=== PATIENT | male | born 1955 | race African-American/Black ===

== ENCOUNTER 2020-12-15 06:09 | Observation (INO) ==
[2020-12-15 07:17] LABS: Basophils % 0.9 % (0.0-0.8); Eosinophils # 0.1 10*3/uL (0.0-0.87); Eosinophils % 2.6 % (0.00-10.9); Hematocrit 36.6 VOL% (42.0-52.0); Hemoglobin 12.4 GM/DL (14.0-18.0); Immature Granulocytes % 0.4 %; Immature Granulocytes Absolute 0.02 #; Lymphocytes # 1.3 10*3/uL (1.4-4.0); Lymphocytes % 28.5 % (21.2-54.2); Mean Corpuscular HGB Conc 33.9 GM/DL (32-36); Mean Corpuscular Volume 89.5 FL (87-102); Mean Platelet Volume 9.7 FL (9.6-12.0); Monocytes % 7.5 % (1.7-12.7); Neutrophils % 60.1 % (38.7-73.9); Platelet Count 265 T/CUMM (130-400); Red Blood Count 4.09 MC/CUMM (3.8-5.5); Red Cell Distribution Width 13.5 % (9.3-17.3); White Blood Count 4.7 T/CUMM (4-12)
[2020-12-15 07:26] LABS: INR 0.9; PT Patient Result 10.2 SECS (9.8-11.9)
[2020-12-15] MEDS ORDERED: DIAZEPAM 5 MG TABLET PO ONE (08:30)
[2020-12-15] MEDS: SODIUM CHLORIDE 0.45% 1,000 ML IV SCH (09:15)
[2020-12-15] MEDS ORDERED: ACETAMINOPHEN 325 MG TABLET PO PRN (15:36)
[2020-12-15] MEDS ORDERED: ONDANSETRON 4 MG/2 ML VIAL IV PRN (15:36)
[2020-12-15] MEDS ORDERED: DEXTROSE 50% 25 GM/50 ML VIAL IV PRN (15:36)
[2020-12-15] MEDS ORDERED: GLUCAGON 1 MG VIAL IM PRN (15:36)
[2020-12-15] MEDS ORDERED: MORPHINE 4 MG/1 ML VIAL IV PRN (16:52)
[2020-12-15 17:27] LABS: Albumin 3.1 G/DL (3.4-5.0); Bilirubin,Total 0.5 MG/DL (0.2-1.0); Calcium 8.9 MG/DL (8.5-10.1); Osmolality,Calculated 284.1 MOS/KG (273-304); Potassium 3.3 MMOL/L (3.5-5.1); Total Protein 6.4 G/DL (6.4-8.2)
[2020-12-15] MEDS ORDERED: POTASSIUM CHLORIDE 20 MEQ TABLET PO ONE (19:15)
[2020-12-15] MEDS ORDERED: POTASSIUM CHLORIDE 20 MEQ TABLET PO PRN (19:15)
[2020-12-16 04:43] LABS: Basophils % 0.4 % (0.0-0.8); Eosinophils # 0.1 10*3/uL (0.0-0.87); Eosinophils % 1.2 % (0.00-10.9); Hematocrit 32.6 VOL% (42.0-52.0); Hemoglobin 10.8 GM/DL (14.0-18.0); Immature Granulocytes % 0.4 %; Immature Granulocytes Absolute 0.03 #; Lymphocytes # 1.3 10*3/uL (1.4-4.0); Lymphocytes % 17.9 % (21.2-54.2); Mean Corpuscular HGB Conc 33.1 GM/DL (32-36); Mean Corpuscular Volume 90.8 FL (87-102); Mean Platelet Volume 9.8 FL (9.6-12.0); Monocytes % 7.4 % (1.7-12.7); Neutrophils % 72.7 % (38.7-73.9); Platelet Count 239 T/CUMM (130-400); Red Blood Count 3.59 MC/CUMM (3.8-5.5); Red Cell Distribution Width 13.7 % (9.3-17.3); White Blood Count 7.4 T/CUMM (4-12)
[2020-12-16 05:02] LABS: Albumin 2.7 G/DL (3.4-5.0); Bilirubin,Total 0.5 MG/DL (0.2-1.0); Calcium 8.6 MG/DL (8.5-10.1); Osmolality,Calculated 278.5 MOS/KG (273-304); Potassium 3.7 MMOL/L (3.5-5.1); Total Protein 5.8 G/DL (6.4-8.2)
[2020-12-16] MEDS ORDERED: amLODIPine 10 MG TABLET PO SCH (09:00)
[2020-12-16] MEDS ORDERED: PANTOPRAZOLE 40 MG TABLET PO SCH (09:00)
[2020-12-16] MEDS: SODIUM CHLORIDE 0.45% 1,000 ML IV SCH (10:23)
[2020-12-16 16:35] VITALS: BP 150/72
== END 2020-12-16 18:10 | disposition home or self-care (01) ==
LOC: N.RAD 06:09 → N.SDSINP 06:11 → N.4E 16:31 → SUATTDRO 16:44 → INTOOBSV 16:44 → N.4E 16:44
PROVIDERS: ADMIT Internal Medicine; ATTEND Internal Medicine
PROC: IRGDHTC (2020-12-15 15:34)

== ENCOUNTER 2020-12-25 06:12 | Observation (INO) ==
[~2020-12-25 06:12] MED LIST: LACTATED RINGERS 1,000 ML IV SCH; ceFAZolin 1,000 MG VIAL ONE
[2020-12-25 06:40] LABS: Hematocrit 31.1 VOL% (42.0-52.0); Hemoglobin 10.8 GM/DL (14.0-18.0)
[2020-12-25] MEDS ORDERED: LIDOCAINE 1%/EPI INJ 20 ML VIAL ONE (08:49)
[2020-12-25] MEDS ORDERED: TISSUE ADHESIVE 1 EACH APPLICATOR TOP ONE (08:49)
[2020-12-25] MEDS ORDERED: HEPARIN 5,000 UNIT/1 ML VIAL ONE (08:49)
[2020-12-25] MEDS ORDERED: BUPIVACAINE MPF 0.25% 30 ML VIAL ONE (08:49)
[2020-12-25] MEDS ORDERED: MIDAZOLAM 2 MG/2 ML VIAL ONE (09:14)
[2020-12-25] MEDS ORDERED: ONDANSETRON 4 MG/2 ML VIAL ONE (09:28)
[2020-12-25] MEDS ORDERED: DEXAMETHASONE 4 MG/1 ML VIAL ONE (09:28)
[2020-12-25] MEDS ORDERED: DEXMEDETOMIDINE 200 MCG/2 ML VIAL ONE (09:30)
[2020-12-25] MEDS ORDERED: ETOMIDATE 40 MG/20 ML VIAL IV ONE (09:30)
[2020-12-25] MEDS ORDERED: LIDOCAINE 2% 5 ML VIAL ONE (09:30)
[2020-12-25] MEDS ORDERED: ONDANSETRON 4 MG/2 ML VIAL IV PRN (15:04)
[2020-12-25] MEDS ORDERED: ACETAMINOPHEN 325 MG TABLET PO PRN (15:04)
[2020-12-25] MEDS ORDERED: BISACODYL 5 MG TABLET PO PRN (15:04)
[2020-12-25] MEDS ORDERED: KETOROLAC 15 MG/1 ML VIAL IV PRN (15:04)
[2020-12-25] MEDS ORDERED: HYDROmorphone 2 MG/1 ML VIAL IV PRN (15:04)
[2020-12-25] MEDS ORDERED: ALBUTEROL/IPRATROPIUM 3 ML NEB RESP TX PRN (15:04)
[2020-12-25] MEDS: ALBUTEROL/IPRATROPIUM 3 ML NEB RESP TX SCH (19:25)
[2020-12-26] MEDS: ALBUTEROL/IPRATROPIUM 3 ML NEB RESP TX SCH ×3 (02:12→13:38)
[2020-12-26] MEDS ORDERED: amLODIPine 10 MG TABLET PO SCH (09:00)
[2020-12-26] MEDS ORDERED: lisinopriL 20 MG TABLET PO SCH (09:00)
[2020-12-26] MEDS ORDERED: PANTOPRAZOLE 40 MG TABLET PO SCH (09:00)
[2020-12-26 11:32] VITALS: BP 142/61
== END 2020-12-26 14:40 | disposition home or self-care (01) ==
LOC: N.OR 06:12 → N.5E 06:12 → N.SDSINP 06:14 → N.5E 17:09
PROVIDERS: ADMIT Student in an Organized Health Care Education/Training Program; ATTEND Student in an Organized Health Care Education/Training Program